=== PATIENT | female | born 1985 | race Hispanic/Latino ===

== ENCOUNTER → 2024-11-15 | Day surgery (SDC) | payer OTHER ==
[~2024-11-15] MED LIST: ATIVAN1 MG PO; ATROVENT HFA12.9 GM INH; BENLYSTA120 MG; BENZONATATE200 MG PO; CELEBREX200 MG PO; CETIRIZINE HCL10 M1 PO; DOXYCYCLINE HY100 MG PO; EPIPEN JR0.15 MG/01; FENTANYL CITRATE/PF 100MCG/2 ML INJ ONE; LORAZEPAM2 MG/1 M1 IVP; METOCLOPRAMIDE HCL 10 MG/2ML VIAL ONE; MIDAZOLAM HCL 2 MG/2 ML VIAL ONE; NEURONTIN300 MG PO; OMEPRAZOLE40 MG PO; ONDANSETRON HCL INJ 2MG/ML 2ML 2 MG/ML VIAL ONE; PLAQUENIL200 MG PO; PROPOFOL IV EMULSION 10 MG/ML 20 ML VIAL ONE; SERTRALINE HCL100 MG PO; TIZANIDINE HCL4 M1 PO
[2024-11-15] MEDS: LACTATED RINGER'S 1,000 ML ONE (10:16)
[2024-11-15 13:41] VITALS: TEMP 97.3
[2024-11-15 13:55] VITALS: BP 95/60; PULSE 70; RESP 16; O2SAT 95
== END | disposition home or self-care (01) ==
LOC: OR 09:46
PROVIDERS: ATTEND Internal Medicine Gastroenterology
DX: K21.9 Gastro-esophageal reflux disease without esophagitis (principal); K31.7 Polyp of stomach and duodenum; K29.60 Other gastritis without bleeding; K29.50 Unspecified chronic gastritis without bleeding; K44.9 Diaphragmatic hernia without obstruction or gangrene; K31.89 Other diseases of stomach and duodenum; R19.8 Other specified symptoms and signs involving the digestive system and abdomen; D64.9 Anemia, unspecified; M32.9 Systemic lupus erythematosus, unspecified; F43.10 Post-traumatic stress disorder, unspecified; F42.9 Obsessive-compulsive disorder, unspecified; F41.9 Anxiety disorder, unspecified; Z79.1 Long term (current) use of non-steroidal anti-inflammatories (NSAID); Z79.899 Other long term (current) drug therapy; Z68.34 Body mass index [BMI] 34.0-34.9, adult; Z80.0 Family history of malignant neoplasm of digestive organs
CPT/HCPCS: 43239; 43251; 81025; J2250; J2405; J2704; J2765; J3010; J7121